=== PATIENT | female | born 1980 | race African-American/Black ===

== ENCOUNTER 2019-07-03 22:59 | Emergency (ER) | payer SELFPAY | END 2019-07-04 01:00 | disposition home or self-care (01) | LOC: ERS 22:59 | DX: S41.012A Laceration without foreign body of left shoulder, initial encounter (principal); D50.9 Iron deficiency anemia, unspecified; F32.9 Major depressive disorder, single episode, unspecified; Y04.0XXA Assault by unarmed brawl or fight, initial encounter | CPT/HCPCS: 12002 ==

== ENCOUNTER 2022-01-24 14:15 | Emergency (ER) | payer SELFPAY ==
[2022-01-24] MEDS ORDERED: Ketorolac Tromethamine 30 MG/ML VIAL ONE (16:11)
== END 2022-01-24 17:45 | disposition home or self-care (01) ==
LOC: ERS 14:15
DX: M25.511 Pain in right shoulder (principal); D50.9 Iron deficiency anemia, unspecified
CPT/HCPCS: J1885